=== PATIENT | female | born 1975 | race Caucasian/White ===

== ENCOUNTER 2021-08-03 07:16 | Outpatient (RCR) | payer BC, SELFPAY | END 2021-11-01 23:59 | disposition home or self-care (01) | LOC: ANHVASCINF 07:16 | PROVIDERS: PCP Physician Assistant; Visit Provider Physician Assistant | DX: R94.7 Abnormal results of other endocrine function studies (principal) | CPT/HCPCS: 36415; 82533; 96372; J0834 ==

== ENCOUNTER 2023-04-24 07:53 | Outpatient (CLI) | payer BC, SELFPAY | END 2023-04-24 07:54 | disposition home or self-care (01) | LOC: ANHAUDIO 07:53 | PROVIDERS: PCP Physician Assistant; Visit Provider Otolaryngology | DX: H90.3 Sensorineural hearing loss, bilateral (principal) | CPT/HCPCS: 92557; 92567 ==